=== PATIENT | female | born 1985 | race Two or more races ===

== ENCOUNTER 2021-02-11 00:26 | Emergency (ER) | payer OTHER ==
[~2021-02-11] VITALS: Ht 160 cm; Wt 86.2 kg
[2021-02-11 00:26] VITALS: BP 113/79
[2021-02-11 02:06] LABS: Urine Bacteria FEW /hpf (None Seen); Urine Blood Negative /uL (Negative); Urine Specific Gravity 1.027 (1.001-1.035); Urine WBC 83 /hpf (0 - 5)
== END 2021-02-11 04:05 | disposition left against medical advice (07) ==
LOC: ER 00:29
DX: R10.9 Unspecified abdominal pain (principal); R11.2 Nausea with vomiting, unspecified; Z53.21 Procedure and treatment not carried out due to patient leaving prior to being seen by health care provider
CPT/HCPCS: 81001